=== PATIENT | male | born 1960 | race Caucasian/White ===

== ENCOUNTER 2017-10-13 16:42 | Emergency (ER) | payer SELFPAY ==
[~2017-10-13] VITALS: Ht 157.5 cm; Wt 65.0 kg
[~2017-10-13 16:42] MED LIST: ATEN-100 PO; HYDR-3533 PO
[2017-10-13 17:00] VITALS: BP 156/84; PULSE 104; RESP 16; TEMP 99.1; O2SAT 97
--- NOTE | 2017-10-13 17:47 | PD ---
HPI Chief Complaint: Complaint Time Seen by Provider: 17:28 Travel History International Travel<30 days: No Contact w/Intl Traveler<30days: No Traveled to known affect area: No History of Present Illness HPI This patient complains of pain in the left testicle. He has swelling there. He says he developed a problem yesterday. Duration is about 24 hours. No dysuria or hematuria or fever or injury. Symptoms severity is moderate. No alleviating factors. No exacerbating factors. PFSH Past Medical History Cardiovascular Problems: Yes (HEART MURMUR) Diminished Hearing: No Hypertension: Yes Musculoskeletal: Yes (HERNIATED DISCS) Immunizations Current: Yes Influenza Vaccination: No Past Surgical History Abdominal Surgery: Yes (ABDOMINAL TUMOR IN CHILDHOOD) Social History Alcohol Use: Yes (~2 DAILY) Tobacco Use: Yes (1 PPD) Substance Use: No Allergies-Medications (Allergen,Severity, Reaction): Coded Allergies: naproxen (Unverified Allergy, Severe, VOMITING, 10/13/17) Reported Meds & Prescriptions Reported Meds & Active Scripts Active Levaquin (Levofloxacin) 500 Mg Tablet 500 Mg PO DAILY Tramadol (Tramadol HCl) 50 Mg Tab 50 Mg PO Q6H PRN Review of Systems General / Constitutional: No: Fever Eyes: No: Visual changes HENT: No: Headaches Cardiovascular: No: Chest Pain or Discomfort Respiratory: No: Shortness of Breath Gastrointestinal: No: Abdominal Pain Genitourinary: No: Dysuria Musculoskeletal: No: Pain Skin: No Rash Neurologic: No: Weakness Psychiatric: No: Depression Endocrine: No: Polydipsia Hematologic/Lymphatic: No: Easy Bruising Physical Exam Narrative GENERAL: Well-nourished, well-developed patient with left testicle pain . SKIN: Focused skin assessment reveals no rash and nodules. Skin is Warm and dry. HEAD: Atraumatic. Normocephalic. EYES: Pupils equal and round. No scleral icterus. No injection or drainage. ENT: No nasal bleeding or discharge. Mucous membranes pink and moist. NECK: Trachea midline. No JVD. CARDIOVASCULAR: Regular rate and rhythm. No murmur appreciated. RESPIRATORY: No accessory muscle use. Clear to auscultation. Breath sounds equal bilaterally. GASTROINTESTINAL: Abdomen soft, non-tender, nondistended. Hepatic and splenic margins not palpable. MUSCULOSKELETAL: No obvious deformities. No clubbing. No cyanosis. No edema. NEUROLOGICAL: Awake and alert. No obvious cranial nerve deficits. Motor grossly within normal limits. Normal speech. PSYCHIATRIC: Appropriate mood and affect; insight and judgment normal. : Circumcised penis with some genital warts on the shaft. Right testicles nontender. Left testicle is enlarged with some tenderness. It does seem freely mobile Data Data Last Documented VS Vital Signs Date Time Temp Pulse Resp B/P (MAP) Pulse Ox O2 Delivery O2 Flow Rate FiO2 10/13/17 18:23 83 16 137/71 (93) 97 Room Air 10/13/17 17:00 99.1 Orders Orders Us Testicles W Doppler (10/13/17 ) Acetamin-Hydrocod 325-5 Mg (Hamer 5-325 (10/13/17 18:15) MDM Medical Decision Making Medical Screen Exam Complete: Yes Emergency Medical Condition: Yes Medical Record Reviewed: Yes Differential Diagnosis Epididymitis, hydrocele, torsion Narrative Course I have reviewed the patient's electronic medical record. I've ordered ultrasound of the testicles Ultrasound is reviewed. It's consistent with left-sided epididymitis which would explain his clinical findings No torsion noted I prescribed him some Levaquin for up-to-date recommendations as well as some tramadol. Ice and scrotal support as well. Diagnosis Primary Impression: Epididymitis, left Additional Instructions: The patient was warned about potential sedation for the medications they will receive on prescription. The patient was advised to follow up with their physician and return if they worsen. Use scrotal support Ice as needed Med/Other Pt SpecificInfo: Prescription(s) given Scripts Levofloxacin (Levaquin) 500 Mg Tablet 500 MG PO DAILY for Infection, #7 TAB 0 Refills Prov: Dago Lynch MD 10/13/17 Tramadol (Tramadol) 50 Mg Tab 50 MG PO Q6H Y for PAIN, #20 TAB 0 Refills Prov: Dago Lynch MD 10/13/17 Disposition: 01 DISCHARGE HOME Condition: Stable Dago Lycnh MD Oct 13, 2017 17:47
[2017-10-13] MEDS ORDERED: ACETAMINOPHEN/HYDROcodone 325 MG/5 MG TAB PO ONE (18:15)
[2017-10-13 18:23] VITALS: BP 137/71; PULSE 83; RESP 16; O2SAT 97
--- NOTE | 2017-10-13 19:10 | RADRPT ---
EXAM DATE/TIME: 10/13/2017 18:35 [facility] COMPARISON: No previous studies available for comparison. INDICATIONS : Pain and swelling left testicle. MEDICAL HISTORY : Heart murmur. Hypertension. SURGICAL HISTORY : Abdominal tumor removed as a child. ENCOUNTER: Initial ACUITY: 1 day PAIN SCORE: 7/10 LOCATION: Bilateral testicle. MEASUREMENTS: RIGHT TESTICLE: 4.4 x 2.9 x 3.2cm LEFT TESTICLE: 5.1 x 3.7 x 2.4cm FINDINGS: RIGHT TESTICLE: Homogeneous echotexture without intra or extratesticular mass. Blood flow is symmetric and within no rmal limits. No hydrocele or varicocele. Epididymis is within normal limits. LEFT TESTICLE: Homogeneous echotexture without intra or extratesticular mass. Blood flow is symmetric and within no rmal limits. A small hydrocele is noted on the left. Left-sided varicocele is noted. The left epididy mis is enlarged and heterogeneous raising possibility of acute epididymitis on the left. Clinical cor relation is recommended. SCROTUM: Within normal limits. CONCLUSION: 1. Enlarged heterogeneous left epididymis suggesting acute epididymitis on the left. Clinical correla tion is recommended. 2. Small left hydrocele. 3. Small left varicocele. 4. No intratesticular mass or testicular torsion. 5. Slightly prominent inguinal lymph nodes with the largest measuring 2.5 x 1.3 x 0.9 cm. Chris Cunha MD on October 13, 2017 at 19:04 Board Certified Radiologist. This report was verified electronically.
[2017-10-13] MEDS ORDERED: LEVA500T33 PO (19:26)
[2017-10-13] MEDS ORDERED: TRAM50TA PO (19:26)
== END 2017-10-13 20:11 | disposition home or self-care (01) ==
LOC: PHED 16:42
DX: N45.1 Epididymitis (principal); I10 Essential (primary) hypertension; F17.210 Nicotine dependence, cigarettes, uncomplicated; Z88.8 Allergy status to other drugs, medicaments and biological substances
CPT/HCPCS: 76870; 93975